=== PATIENT | female | born 1965 | race Caucasian/White ===

== ENCOUNTER 2017-01-28 06:41 | Day surgery (SDC) | payer MEDICAID ==
[2017-01-27 11:43] VITALS: BMI 22.2
[2017-01-28] MEDS ORDERED: Propofol 10 mg/ml Inj (20 ML) ONE (07:17)
[2017-01-28] MEDS ORDERED: Midazolam 2 MG/2 ML VIAL ONE (07:17)
[2017-01-28] MEDS ORDERED: cefOXitin IV 1 gm in Dextrose 0 GM/0 ML BAG IVPB ONE (07:58)
[2017-01-28] MEDS ORDERED: cefOXitin IV 2 gm in Dextrose 0 GM/0 ML BAG IVPB ONE (07:58)
[2017-01-28] MEDS ORDERED: Lactated Ringer's 1,000 ML IV ONE (08:25)
[2017-01-28] MEDS ORDERED: HYDROmorphone 0.5 mg/0.5 ml ISec IVP PRN (08:54)
[2017-01-28] MEDS ORDERED: Lactated Ringer's 1,000 ML IV SCH (09:15)
[2017-01-28 09:56] VITALS: O2SAT 100
[2017-01-28 10:23] VITALS: RESP 16
[2017-01-28 11:46] VITALS: BP 113/70; PULSE 62; TEMP 97.3
--- NOTE | 2017-01-30 09:47 | OP ---
PROCEDURE DATE: 01/28/2017 PREOPERATIVE DIAGNOSIS: 51 years old, 2, para 2-0-0-2 with irregular menses and a polyp. POSTOPERATIVE DIAGNOSIS: 51 years old, 2, para 2-0-0-2 with irregular menses and a polyp. PROCEDURE PERFORMED: Dilation and curettage with hysteroscopy and polypectomy. SURGEON: Dr. Chan. ANESTHESIOLOGIST: ____ . ANESTHESIA: General. ESTIMATED BLOOD LOSS: 50 mL. FLUIDS: 500 mL of lactated Ringer's. COMPLICATIONS: None. PATHOLOGY: Endometrial curetting. INDICATION: A 51-year-old 2, para 2-0-0-2 with irregular menses and a polyp for a diagnostic dilation and curettage, hysteroscopy and polypectomy. FINDINGS: Due to the difficulty of advancing the hysteroscope into the endometrial cavity. It was v devaughn difficult to visualize the endometrium. DESCRIPTION OF PROCEDURE: The patient was taken to the operating room where she was placed in the do rsal supine lithotomy position using Barney stirrups. The patient's perineal and vaginal area were pr operly prepared and draped in the normal sterile fashion. A weighted speculum was placed into the va sheba. A single tooth tenaculum was used to grasp the anterior lip of the cervix. The uterus sounded to 7 cm. The cervical os were dilated with Jordan dilators all the way up to the #21. The hysterosc ope was gently advanced into the uterine cavity; however, there was difficulty advancing the hysteros cope to visualize the endometrium. The hysteroscope was then removed from the endometrial cavity. A gentle curettage was performed x 3. Endometrial curettings were obtained and sent for pathology. A ll instruments were removed from the vagina. All sponge and lap and needle counts were correct x 2. The patient tolerated the procedure well and was taken to the recovery room in stable condition. Marcela Chan MD cc: [id number] TT: 01/30/2017 09:46:11 jn
== END 2017-01-28 11:00 | disposition home or self-care (01) ==
LOC: C.SDS 06:41
PROVIDERS: ATTEND Obstetrics & Gynecology
DX: N84.0 Polyp of corpus uteri (principal); N92.6 Irregular menstruation, unspecified
CPT/HCPCS: 58558; 88305; J1100; J1885; J2001; J2250; J2405; J2704; J3010; J7120